=== PATIENT | male | born 1990 | race Caucasian/White ===

== ENCOUNTER 2016-12-24 15:54 | Emergency (ER) | payer OTHER ==
[~2016-12-24] VITALS: Ht 182.9 cm; Wt 79.4 kg
--- NOTE | 2016-12-24 17:28 | ED NECK/BACK PAIN COMPLAINT ---
History of Present Illness General Chief Complaint: Lower Extremity Injury Stated Complaint: PT IS HAVING LOWER BACK PAIN AND SHAKEY Source: patient Exam Limitations: no limitations Vital Signs & Intake/Output Vital Signs & Intake/Output Vital Signs Date Time Temp Pulse Resp B/P B/P Pulse O2 O2 Flow FiO2 Mean Ox Delivery Rate 12/24 1824 97.3 64 17 120/70 99 Room Air 12/24 1618 97.9 96 20 143/90 99 Room Air Room Air Allergies Coded Allergies: lactose (Intermediate, GAS 12/24/16) pineapple (Intermediate, GAS/BURPING 12/24/16) tomato (Intermediate, GAS BURBING 12/24/16) Reconcile Medications Aspirin (Aspirin*) 325 MG TABLET 1 TAB PO ONCE PAIN (Reported) Cyclobenzaprine HCl 5 MG TABLET 1 TAB PO TIDPRN PRN muscle spasms Naproxen (Naprosyn) 500 MG TABLET 1 TAB PO BID PRN pain and inflammation Triage Note: PT TO ED WITH C/O "I HAD AN INCIDENT A FEW DAYS AGO OF BACK PAIN, GOT ON BACK ON THE FLOOR AND IT RESOLVED". PT DENIES FALL OR INJURY TO THE AREA. Triage Nurses Notes Reviewed? yes HPI: This patient is a 26-year-old male who presented to the emergency department today for evaluation of lower back pain. The patient reported that on Tuesday he began to have nonradiating lower back pain. He reported that he laid flat on the floor at first the pain got worse and his face started, "shaking," and then the pain seemed to subside. He reported that laying on the floor seemed to, "stabilized my back." He reported that he was doing work on his computer and then drove to work. He reported that his back seems to feel fine when he is sitting after he stabilizes his back. He reported that his episodes happen multiple times during the day on Tuesday. He also reported that he had similar episodes today. He reported that the pain gets up to a 7 out of 10, is throbbing, and nonradiating. He denied any fevers or chills. No chest pain difficulty breathing. He denies any abdominal pain or groin pain. He reported some urinary frequency, no urgency, burning with urination, or blood in the urine. The patient denied any saddle paresthesia or bowel or bladder incontinence. He reported that as a hobby he works on cars and does a lot of heavy lifting often. He denied any other trauma to the area. (ISSA NORTON PA-C) Past History Travel History Traveled to [place] past 21 day No Medical History Any Pertinent Medical History? see below for history Neurological: NONE EENT: NONE Cardiovascular: NONE Respiratory: asthma Gastrointestinal: GERD, LACTOSE INTOLERANT Hepatic: NONE Renal: NONE Musculoskeletal: NONE Psychiatric: NONE Endocrine: NONE Blood Disorders: NONE Cancer(s): NONE CORPORATE DEVELOPMENT ANALYST/Reproductive: NONE Surgical History Surgical History: non-contributory Psychosocial History What is your primary language Mongolian Tobacco Use: Current Daily Use Daily Tobacco Use Amount/Type: => 5 Cigarettes daily ETOH Use: occasional use Illicit Drug Use: marijuana Family History Hx Contributory? No (ISSA NORTON PA-C) Review of Systems Review of Systems Constitutional: Reports: no symptoms. Eyes: Reports: no symptoms. Ears, Nose, Throat, Mouth: Reports: no symptoms. Respiratory: Reports: no symptoms. Cardiovascular: Reports: no symptoms. Gastrointestinal/Abdominal: Reports: no symptoms. Musculoskeletal: Reports: see HPI. Skin: Reports: no symptoms. Neurological/Psychological: Reports: no symptoms. All Other Systems: Reviewed and Negative (ISSA NORTON PA-C) Physical Exam Physical Exam Neck: normal inspection, supple, full range of motion, normal alignment Comments: Well-developed well-nourished person in no acute distress HEENT: Normal EENT exam, head normocephalic, moist mucous membranes Pupils equally round and reactive to light. Back: Normal gait. No midline tenderness. Bilateral lumbar paraspinal musculature tenderness with muscular spasm noted. Negative straight leg raise bilaterally. Rrespiratory: No respiratory distress. Speaking in full sentences Abdomen: Soft, nontender and nondistended Extremity: Normal and equal pulses. Neuro: Alert oriented x3, cranial nerves II through XII grossly intact. Skin: No appreciable rash on exposed skin, skin is warm and dry. Psych: Mood and affect is normal (ISSA NORTON PA-C) Progress Differential Diagnosis: AAA, aortic dissection, cauda equina syn, herniated disc , myofascial strain, pyelo/UTI, sciatica, spinal cord inj, thoracic outlet syn, T/L spine injury, ureterolithiasis Plan of Care: Orders Procedure Date/time Status URINALYSIS 12/24 1721 Complete Laboratory Tests 12/24/16 1730: Urine Color STRAW, Urine Clarity CLEAR, Urine pH 7.0, Ur Specific [place] <= 1.005, Urine Protein NEG, Urine Ketones NEG, Urine Nitrite NEG, Urine Bilirubin NEG, Urine Urobilinogen 0.2, Ur Leukocyte Esterase NEG, Ur Microscopic EXAM NOT REQUIRED, Urine Hemoglobin NEG, Urine Glucose NEG Diagnostic Imaging: Viewed by Me: CT Scan. Discussed w/RAD: CT Scan. Radiology Impression: PATIENT: FLIP LIMON PRESENT AGE: 26 PATIENT ACCOUNT NO: [id number] : 91 LOCATION: [facility] ORDERING PHYSICIAN: ISSA NORTON PA-C SERVICE DATE: 12/24/16 EXAM TYPE: CAT - CT LUMB SPINE WO IV CONTRAST EXAMINATION: CT LUMBAR SPINE WITHOUT CONTRAST CLINICAL INFORMATION: Pain. Assess for fracture, bulging disc. COMPARISON: None TECHNIQUE: Helical non-contrast CT images were obtained through the lumbar spine and 1.25 and 2.5 mm axial reconstructions were reviewed along with sagittal and coronal MPRs. DLP: 248 mGy-cm FINDINGS: There are 5 nonrib- bearing lumbar type vertebral bodies. Vertebral body height and sagittal alignment are maintained. Intervertebral disc height is maintained. No evidence of spondylolyses. No significant scoliosis. The visualized lung bases are clear. There are punctate foci of mineralization in the region of the right adrenal gland without nodule. Otherwise the visualized abdominal viscera appear grossly unremarkable. The aorta is normal in caliber. No retroperitoneal adenopathy. The imaged SI joints are unremarkable. There are disc bulges at L3-L4, L4-L5, and L5 -S1. Minor facet arthropathy at L5-S1. The canal at these levels is minimally flattened. The foramina are mildly narrowed bilaterally at L3-L4 and L4-L5 and mild to moderately narrowed bilaterally at L5-S1. IMPRESSION: Mild lumbar spondylosis. No compression deformity. DICTATED BY: CADENCE GARDINER MD DATE/TIME DICTATED:12/24/161753 AUTOMOTIVE HARDWARE ENGINEER:RUIZ DATE/TIME TRANSCRIBED:1753 CONFIDENTIAL, DO NOT COPY WITHOUT APPROPRIATE AUTHORIZATION. < Electronically signed in Other Vendor System> SIGNED BY: CADENCE GARDINER MD 12/24/16 1820 (ERROL CARBAJAL,ISSA) Departure Departure Disposition: HOME OR SELF CARE Condition: Stable Clinical Impression Primary Impression: Muscle strain Referrals: UNKNOWN (PCP/Family) Additional Instructions: Avoid any strenuous activity or heavy lifting over the next several days. Gentle stretching. You may apply ice or heat to the affected area as needed. Please take Flexeril as prescribed for muscle relaxation. Take naproxen as prescribed for pain and inflammation. You may follow-up with the orthopedic physician whose information has been provided to you in this packet. Return for any worsening symptoms or concerns. Departure Forms: Customer Survey General Discharge Information Prescriptions: Current Visit Scripts Cyclobenzaprine HCl 1 TAB PO TIDPRN PRN muscle spasms #12 TAB Naproxen (Naprosyn) 1 TAB PO BID PRN pain and inflammation #20 TAB (ISSA NORTON PA-C) PA/EXTENSION WORKER Co-Sign Statement Statement: ED Attending supervision documentation- [] I saw and evaluated the patient. I have also reviewed all the pertinent lab results and diagnostic results. I agree with the findings and the plan of care as documented in the PA's/EXTENSION WORKER's documentation. [X] I have reviewed the ED Record and agree with the PA's/EXTENSION WORKER's documentation. [] Additions or exceptions (if any) to the PAs/EXTENSION WORKER's note and plan are summarized below: [] (ALBER WORTHY,KARLA)
[2016-12-24] MEDS ORDERED: ASPIRIN325 M2 PO (18:01)
--- NOTE | 2016-12-24 18:20 | CT SCAN REPORT ---
EXAMINATION: CT LUMBAR SPINE WITHOUT CONTRAST CLINICAL INFORMATION: Pain. Assess for fracture, bulging disc. COMPARISON: None TECHNIQUE: Helical non-contrast CT images were obtained through the lumbar spine and 1.25 and 2.5 mm axial reconstructions were reviewed along with sagittal and coronal MPRs. DLP: 248 mGy-cm FINDINGS: There are 5 nonrib-bearing lumbar type vertebral bodies. Vertebral body height and sagittal alignment are maintained. Intervertebral disc height is maintained. No evidence of spondylolyses. No significant scoliosis. The visualized lung bases are clear. There are punctate foci of mineralization in the region of the right adrenal gland without nodule. Otherwise the visualized abdominal viscera appear grossly unremarkable. The aorta is normal in caliber. No retroperitoneal adenopathy. The imaged SI joints are unremarkable. There are disc bulges at L3-L4, L4-L5, and L5-S1. Minor facet arthropathy at L5-S1. The canal at these levels is minimally flattened. The foramina are mildly narrowed bilaterally at L3-L4 and L4-L5 and mild to moderately narrowed bilaterally at L5-S1. IMPRESSION: Mild lumbar spondylosis. No compression deformity.
[2016-12-24 18:24] VITALS: BP 120/70
[2016-12-24] MEDS ORDERED: CYCLOBENZAPRINE5 M2 PO (18:27)
[2016-12-24] MEDS ORDERED: NAPROSYN500 M1 PO (18:27)
== END 2016-12-24 18:35 ==
LOC: ERH 15:54
DX: S39.012A Strain of muscle, fascia and tendon of lower back, initial encounter (principal)
CPT/HCPCS: 81003